=== PATIENT | male | born 1940 | race Two or more races ===

== ENCOUNTER 2018-10-21 10:52 | Day surgery (SDC) | payer OTHER, BC ==
[2018-10-21 09:03] VITALS: BMI 32.1
--- NOTE | 2018-10-21 09:12 | HP ---
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) Endocrine: Yes: Diabetes Mellitus - Current Medications Current Medications: Home Medications Medication Instructions Recorded Folic Acid 0.4 mg PO DAILY 10/01/13 Metoprolol Succinate [Toprol XL -] 100 mg PO DAILY 10/01/13 Cholecalciferol (Vitamin D3) 1,000 unit PO DAILY #0 tab 10/08/13 [Vitamin D3 -] metFORMIN HCL [Glucophage -] 500 mg PO BIDAC #60 tablet 10/08/13 Ascorbic Acid [Vitamin C -] 500 mg PO DAILY 10/21/18 Fenofibrate Nanocrystallized 145 mg PO DAILY 10/21/18 [Tricor] Gabapentin 900 - 1,800 mg PO PRN PRN 10/21/18 [place]-3 Fatty Acids/Fish Oil [Fish 1 each PO DAILY 10/21/18 Oil 1,000 mg Capsule] Oxycodone HCl/Acetaminophen 1 tab PO Q6H #20 tablet MDD 4 10/21/18 [Percocet 5-325 mg Tablet] Satellite Physical Exam - Physical Examination General Appearance: Well Nourished, Well Developed, Alert & Oriented x3 ENT: Clear Lung: Normal air movement Heart: Regular rate & rhythm Extremities: Other (left ring- + ttp a1 davion, + cord, nvi) Neurological: Intact, Alert, Oriented Satellite Impression/Plan - Impression/Plan Impression: left ring trigger finger, dupuytrens Operative Procedure: left ring trigger release Date to be Performed: 10/21/18
[2018-10-21] MEDS ORDERED: MIDAZOLAM HCL 2 MG/2 ML SINGLE DOSE VIAL ONE (13:57)
[2018-10-21] MEDS ORDERED: PROPOFOL 20 ML ONE (13:57)
[2018-10-21] MEDS ORDERED: ceFAZolin SODIUM 1 GM VIAL ONE (14:01)
[2018-10-21] MEDS ORDERED: ceFAZolin SODIUM 1 GM VIAL IVPB ONE (14:08)
[2018-10-21] MEDS ORDERED: BUPIVACAINE HCL/PF 0.5% (5MG/ML) 10 ML VIAL ONE (14:13)
[2018-10-21] MEDS ORDERED: LIDOCAINE HCL 1%, 10 MG/ML (20ML VIAL) ONE (14:13)
[2018-10-21] MEDS ORDERED: ONDANSETRON 4 MG/2 ML VIAL IVPUSH PRN (14:35)
[2018-10-21] MEDS ORDERED: oxyCODONE HCL 5 MG TABLET PO PRN (14:35)
[2018-10-21] MEDS ORDERED: LACTATED RINGERS SOLUTION 1,000 ML IV SCH (14:45)
[2018-10-21] MEDS ORDERED: BUPIVACAINE HCL/PF (5 MG/ML) 30 ML VIAL IJ ONE (14:54)
[2018-10-21 16:11] VITALS: TEMP 97.5
[2018-10-21 16:34] VITALS: BP 143/66; PULSE 51
--- NOTE | 2018-10-22 13:42 | OP ---
DATE OF OPERATION: 10/21/2018 PREOPERATIVE DIAGNOSIS: Left hand ring finger trigger finger and Dupuytren contracture. POSTOPERATIVE DIAGNOSIS: Left hand ring finger trigger finger and Dupuytren contracture. PROCEDURES: 1. Left ring finger trigger finger release. 2. Left hand Dupuytren tissue excision. SURGEON: Dee Valladares MD HAZMAT TECHNICIAN: None. ANESTHESIOLOGIST: Aquiles Broussard CRNA ANESTHESIA: MAC anesthesia with local injection of 15 mL of 0.5% Marcaine and 1% lidocaine mixed. DRAINS: None. COMPLICATIONS: None. SPECIMEN: Tendon sheath and Dupuytren tissue, left hand. BLOOD LOSS: None. BLOOD GIVEN: None. FLUID REPLACEMENT: 500 mL. INDICATION: This patient is a 78-year-old male with preoperative diagnosis of a painful left ring finger, recurrent trigger finger, and Dupuytren tissue in his left palm going into the ring finger. After understanding the potential risk, complications, alternatives, and benefits of surgical versus nonsurgical treatment, the patient elected to undergo this procedure. DESCRIPTION OF PROCEDURE: The patient was brought into the operating room, peripheral IV placed and IV sedation given. IV Ancef 2 g were given. MAC anesthesia was induced. The left upper extremity was then prepped and draped in a sterile fashion, elevated, and exsanguinated with Esmarch bandage, and tourniquet inflated to 250 mmHg. I sallie out a zigzag incision over the left palm going over the A1 davion sheath of the left ring finger. Fifteen mL of 0.5% Marcaine and 1% lidocaine mixed was injected in and around the surgical incisions. The incision was then made with a number 15 scalpel blade. Subcutaneous hemostasis was achieved with a bipolar cautery. Dissection was done with both Lipshultz scissors as well as a fresh number 15 scalpel blade raising full-thickness skin flaps and holding down in retraction with 2-0 silk sutures in the lead hand. I could immediately see the Dupuytren tissue and cord with extensions radially and ulnarly. Circumferential dissection was done. The entire cord and the surrounding Dupuytren tissue was excised to pass off the field as specimen. It was done under 3.8 Loupe magnification. Great care was taken to avoid any crossing neurovascular or tendinous structures. The A1 davion sheath of the left ring finger was directly visualized, and an open trigger finger release was done. I excised the central 3 mm of the A1 tendon sheath and passed it off the field as part of the specimen. I was able to see and feel that the release was complete. The area was copiously irrigated and washed out. I then looked and felt for any other abnormal Dupuytren tissue of which I could not. Closure was done with 4-0 undyed Vicryl in the deep dermal layer, and final skin reapproximation was done with 4-0 nylon sutures. The area was then washed and dried, covered with Xeroform, 4 x 4 gauze, fluffs between the fingers, Webril, and Coban. There was no complication during the case. The patient tolerated the procedure quite well. Total tourniquet time was 40 minutes. Patient was brought to the ambulatory recovery room in stable condition. DEE VALLADARES M.D. [id number]
--- NOTE | 2018-10-23 14:03 | PATH ---
Surgical Pathology Report Patient Name: [facility]. Rec. #: [id number] /Age/Gender: 1940 (Age: 78) / M Account: [id number] Location: [facility] SUR[facility]ICAL Taken: 10/21/2018 Received: 10/22/2018 Reported: 10/23/2018 Physicians: Eddi Bower M.D. Specimen(s) Received DUPUYTREN Clinical History Dupuytren's trigger finger Final Diagnosis DUPUYTREN'S, LEFT, TRIGGER AND RING FINGER, RELEASE: CONSISTENT WITH PALMAR FIBROMATOSIS. Electronically Signed Freda Whitman M.D. Gross Description Received in formalin labeled "Dupuytren's," is a 3.3 x 1.6 x 0.3 cm aggregate of sapp-yellow, irregular portions of fibrous tissue. Beater Room Helper sections are submitted in one cassette. /10/22/201810/22/2018
== END 2018-10-21 16:38 | disposition home or self-care (01) ==
LOC: JASU-SURG 10:52
PROVIDERS: ATTEND Orthopaedic Surgery
PROC: 0JNK0ZZ Release Left Hand Subcutaneous Tissue and Fascia, Open Approach (ICD-10-PCS; principal; 2018-10-21 12:30)
PROC: 0LN80ZZ Release Left Hand Tendon, Open Approach (ICD-10-PCS; 2018-10-21 12:30)
DX: M65.342 Trigger finger, left ring finger (principal); M72.0 Palmar fascial fibromatosis [Dupuytren]
CPT/HCPCS: 82962; 88304-TC; 94760

== ENCOUNTER 2019-06-01 07:31 | Emergency (ER) | payer OTHER, BC ==
[2019-06-01 07:54] VITALS: TEMP 97.8; BMI 34.0
[2019-06-01] MEDS ORDERED: ACETAMINOPHEN 1000 MG/100 ML VIAL (NON FORMULARY) IVPB ONE (08:07)
[2019-06-01] MEDS ORDERED: SODIUM CHLORIDE 0.9% 500 ML INFUS.BAG IV ONE (08:13)
--- NOTE | 2019-06-01 08:14 | PDOC ---
History of Present Illness - General Chief Complaint: Pain, Acute Stated Complaint: ABD PAIN History Source: Patient - History of Present Illness Initial Comments: 06/01/19 08:05 79 y/o/m here for right flank pain that started at 4 AM today. Patient states he got out of bed to go to the bathroom and as he was taking a sip of water he had sudden onset right sided flank/groin pain. He states that he felt "like he got shot". He did not fall or lose consciousness at this time. The pain has been constant since. He describes it as 9/10, sharp, non radiating. He took two aspirin this morning without improvement. He does not have shooting pains in his leg and denies any numbness or incontinence. He denies dysuria, hematuria, chest pain, abd pain, SOB, N/V/D, headache, weakness, or other symptoms. He denies history of kidney stones. He had a MRI 2 months ago for back pain and was told he has multiple bulging discs. PMHx: HTN, HLD, DM, fibromyalgia SHx: bilateral TKA, appendectomy, left sided hernia repair, tonsillectomy Social: denies tobacco use. drinks a 6pack of beer daily "to help him sleep" PCP: Dr. Britt Past History - Past Medical History Allergies/Adverse Reactions: Allergies Allergy/AdvReac Type Severity Reaction Status Date / Time No Known Drug Allergies Allergy Verified 06/01/19 07:49 Home Medications: Ambulatory Orders Folic Acid 0.4 mg PO DAILY 10/01/13 Metoprolol Succinate [Toprol XL -] 100 mg PO DAILY 10/01/13 Cholecalciferol (Vitamin D3) [Vitamin D3 -] 1,000 unit PO DAILY #0 tab 10/08/13 metFORMIN HCL [Glucophage -] 500 mg PO BIDAC #60 tablet 10/08/13 Ascorbic Acid [Vitamin C -] 500 mg PO DAILY 10/21/18 Fenofibrate Nanocrystallized [Tricor] 145 mg PO DAILY 10/21/18 Gabapentin 900 - 1,800 mg PO PRN PRN 10/21/18 [place]-3 Fatty Acids/Fish Oil [Fish Oil 1,000 mg Capsule] 1 each PO DAILY Oxycodone HCl/Acetaminophen [Percocet 5-325 mg Tablet] 1 tab PO Q6H #20 tablet MDD 4 10/21/18 Diazepam [Valium] 2 mg PO BID #6 tablet MDD 2 06/01/19 Anemia: No Asthma: No Cancer: No Cardiac Disorders: No CVA: No COPD: No Dementia: No Diabetes: Yes HTN: Yes Hypercholesterolemia: Yes Seizures: No - Surgical History Appendectomy: Yes Orthopedic Surgery: Yes (B/L TKR, left elbow sx) - Immunization History Immunization Up to Date: Yes - Suicide/Smoking/Psychosocial Hx Smoking History: Never smoked Have you smoked in the past 12 months: No If you are a former smoker, when did you quit?: 50YRS AGO Information on smoking cessation initiated: No Hx Alcohol Use: No Drug/Substance Use Hx: No Substance Use Type: None Hx Substance Use Treatment: No Review of Systems - Review of Systems Constitutional: No: Chills, Fever HEENTM: No: Recent change in vision, Nose Congestion Respiratory: No: Cough, Shortness of Breath Cardiac (ROS): No: Chest Pain, Lightheadedness ABD/GI: Yes: Other (right sided flank/groin pain). No: Constipated, Diarrhea, Nausea, Vomiting : No: Burning, Dysuria, Hematuria Musculoskeletal: No: Back Pain Integumentary: No: Rash Neurological: No: Headache, Numbness *Physical Exam - Vital Signs Last Vital Signs Temp Pulse Resp BP Pulse Ox 97.8 F 56 L 16 168/80 100 06/01/19 07:35 06/01/19 07:35 06/01/19 07:35 06/01/19 07:35 06/01/19 07:35 - Physical Exam General Appearance: Yes: Nourished, Appropriately Dressed, Mild Distress HEENT: positive: EOMI, Normal Voice, Symmetrical Neck: positive: Trachea midline, Supple Respiratory/Chest: positive: Lungs Clear, Normal Breath Sounds. negative: Accessory Muscle Use Cardiovascular: positive: Regular Rhythm, Regular Rate, S1, S2 Gastrointestinal/Abdominal: positive: Normal Bowel Sounds, Tender (tenderness to palpation over the right groin ), Soft Male Genitalia: positive: testicular tenderness Musculoskeletal: negative: CVA Tenderness Extremity: positive: Normal Capillary Refill Integumentary: positive: Normal Color. negative: Diaphoresis Neurologic: positive: Fully Oriented, Alert, Motor Strength 5/5 ED Treatment Course - LABORATORY CBC & Chemistry Diagram: 06/01/19 08:30 06/01/19 08:15 Medical Decision Making - Medical Decision Making 06/01/19 08:27 -79 y/o/m here for right flank pain that started at 4 AM today. Patient states he got out of bed to go to the bathroom and as he was taking a sip of water he had sudden onset right sided flank/groin pain. He states that he felt "like he got shot". He did not fall or lose consciousness at this time. The pain has been constant since. He describes it as 9/10, sharp, non radiating. -Workup with: CBC, CMP, lipase, UA, urine culture, scrotal ultrasound -Pain control with IV tylenol. 06/01/19 09:52 -Patient given Morphine for additional pain control. 06/01/19 10:06 -CT abd&pelvis with contrast ordered for further workup. Patients GFR >30. 06/01/19 12:27 -CT abd&pelvis negative. Scrotal U/S negative. -CBC, CMP, UA within normal limits. -Spoke with patient's PCP Dr. Britt. -Will discharge patient with followup and pain medication. *DC/Admit/Observation/Transfer Diagnosis at time of Disposition: Muscle spasm - Discharge Dispostion Disposition: HOME Condition at time of disposition: Improved - Prescriptions Prescriptions: Diazepam [Valium] 2 mg PO BID #6 tablet MDD 2 - Referrals Referrals: Eleno Britt MD [Primary Care Provider] - - Patient Instructions Printed Discharge Instructions: DI for Muscle Spasm Additional Instructions: If you have worsening pain, nausea, fever, start vomiting, or have other concerning symptoms please return to the ER. Please take Motrin and Valium as prescribed for your pain. Please follow up with your pain management doctor this week. Please follow up with your primary care doctor in the next week. - Post Discharge Activity
[2019-06-01] MEDS ORDERED: ACETAMINOPHEN INJECTION 100 ML IVPB ONE (08:19)
[2019-06-01] MEDS ORDERED: morphine CARPU-JECT 4 MG/1 ML DISP.SYRIN IVPUSH ONE ×3 (08:29→09:18)
--- NOTE | 2019-06-01 08:30 | PDOC ---
Attending Attestation - Resident Resident Name: TarikryanSeranader Megan - ED Attending Attestation I have performed the following: I have examined & evaluated the patient, The case was reviewed & discussed with the resident, I agree w/resident's findings & plan, Exceptions are as noted - HPI HPI: 06/01/19 10:12 79 years old with past medical history significant for hypertension hyperlipidemia coronary artery disease presents to the emergency department with sudden onset of right groin pain. No history of similar. Pain is moderate to severe 10 out of 10 sharp radiates from his car into his testicle. No exacerbating or alleviating factors. - Physicial Exam PE: 06/01/19 10:12 Vitals: Triage Vital signs reviewed General Appearance: no acute distress, well nourished well developed, Head: Atraumatic, Cardiac: Regular rate and rhythym, no murmurs, no rubs, no gallops, Lungs: Clear to auscultation bilateral, good air movement bilaterally, Abdomen: Soft, non distended, normal bowel sounds, Mild right lower quadrant TTP Genitourinar No testicular TTP Rectal: Exam deferred Extremities: Full range of motion to all extremities, no cyanosis, clubbing, or edema Skin: Warm and dry, no rashes or lesions, no rash, no petechiae Psych: normal mood, normal affect - Medical Decision Making 06/01/19 15:07 79 years old presents emergency department with sudden onset of right groin pain. Testicular US preformed with no evidence of torsion. CT with on acute pathology. Pain is very positional. No fever no elevated WBC Pt. with recent MRI spine showing mult herniated disc Diff diagnosis includes Radicular pain vrs MSK strain Pt. will f/u with his pain management doctor and will return to the ED for any severe worsening symptoms or for any concerns.
[2019-06-01] MEDS ORDERED: morphine SULFATE 4 MG/ML VIAL ONE ×2 (08:35→09:19)
[2019-06-01 08:49] LABS: ALBUMIN 3.9 g/dl (3.4-5.0); BILIRUBIN,TOTAL 0.8 mg/dL (0.2-1); BLOOD UREA NITROGEN 19.1 mg/dL (7-18); CALCIUM 9.3 mg/dL (8.5-10.1); CREATININE 1.3 mg/dL (0.55-1.3); POTASSIUM 4.8 mmol/L (3.5-5.1)
[2019-06-01 08:54] LABS: BASO % 1.4 % (0-2.0); HEMATOCRIT 45.7 % (35.4-49); HEMOGLOBIN 15.9 GM/dL (11.7-16.9); LYMPH % 12.9 % (8-40); MCH 31.5 pg (25.7-33.7); MCHC 34.7 g/dl (32.0-35.9); MEAN CELL VOLUME 90.8 fl (80-96); MEAN PLT VOLUME 9.2 fl (7.5-11.1); MONO % 7.7 % (3.8-10.2); PLATELET COUNT 176 K/MM3 (134-434); RBC 5.04 M/mm3 (4.00-5.60); RDW 13.6 % (11.9-15.9); WHITE BLOOD COUNT 6.5 K/mm3 (4.0-10.0)
[2019-06-01 11:26] LABS: URINE APPEARANCE CLEAR; URINE BILIRUBIN NEGATIVE (NEGATIVE); URINE COLOR YELLOW; URINE GLUCOSE (UA) NEGATIVE (NEGATIVE); URINE KETONE NEGATIVE (NEGATIVE); URINE LEUK ESTERASE NEGATIVE (NEGATIVE); URINE NITRITE NEGATIVE (NEGATIVE); URINE PROTEIN NEGATIVE (NEGATIVE); URINE UROBILINOGEN 0.2 mg/dL (0.2-1.0)
[2019-06-01] MEDS ORDERED: diazePAM 2 MG TABLET PO ONE (12:00)
[2019-06-01 12:20] VITALS: BP 173/81; PULSE 72
== END 2019-06-01 12:30 | disposition home or self-care (01) ==
LOC: JER 07:31
PROC: 3E033NZ Introduction of Analgesics, Hypnotics, Sedatives into Peripheral Vein, Percutaneous Approach (ICD-10-PCS; principal; 2019-06-01)
PROC: 3E033NZ Introduction of Analgesics, Hypnotics, Sedatives into Peripheral Vein, Percutaneous Approach (ICD-10-PCS; 2019-06-01)
DX: M62.838 Other muscle spasm (principal); I10 Essential (primary) hypertension; E78.5 Hyperlipidemia, unspecified; E11.9 Type 2 diabetes mellitus without complications; Z79.84 Long term (current) use of oral hypoglycemic drugs
CPT/HCPCS: 36415; 74177-TC; 76870-TC; 80053; 81003; 85025; 87086; 87186; 96374; 96375; 96376; 99284-25; J0131

== ENCOUNTER 2022-04-19 13:01 | Emergency (ER) | payer OTHER, BC ==
[2022-04-19 13:20] VITALS: BP 136/63; PULSE 63; RESP 16; BMI 31.7
[2022-04-19 15:02] VITALS: TEMP 98.1
== END 2022-04-19 17:27 | disposition home or self-care (01) ==
LOC: JERFT 13:01
DX: S39.012A Strain of muscle, fascia and tendon of lower back, initial encounter (principal)
CPT/HCPCS: 72131-TC; 99284-25

== ENCOUNTER 2022-09-01 17:48 | Emergency (ER) | payer OTHER, BC ==
[2022-09-01 17:58] VITALS: PULSE 90; BMI 31.0
[2022-09-01] MEDS ORDERED: IBUPROFEN 400 MG TABLET (FP) PO ONE ×2 (18:14→18:25)
[2022-09-01] MEDS ORDERED: ACETAMINOPHEN 325 MG TABLET (FP) PO ONE (18:14)
[2022-09-01] MEDS ORDERED: ACETAMINOPHEN 325 MG TABLET (FP) ONE (18:26)
[2022-09-01] MEDS ORDERED: LACTATED RINGERS SOLUTION 1000 ML INFUS.BAG IV ONE (18:37)
[2022-09-01 19:14] LABS: HEMOGLOBIN 14.5 GM/dL (11.7-16.9); LYMPH % 7.8 % (8-40); MCHC 34.5 g/dl (32.0-35.9); MEAN CELL VOLUME 89.8 fl (80-96); MEAN PLT VOLUME 8.7 fl (7.5-11.1); NEUT % 80.2 % (42.8-82.8); PLATELET COUNT 159 10^3/uL (134-434); RBC 4.68 M/mm3 (4.00-5.60); RDW 13.6 % (11.9-15.9); WHITE BLOOD COUNT 7.4 K/mm3 (4.0-10.0)
[2022-09-01 19:21] LABS: INR 1.21 (0.83-1.09); PROTHROMBIN TIME (PATIENT) 13.9 SEC (9.7-13.0)
[2022-09-01 19:23] LABS: ACTIVATED PTT 52.2 SECONDS (25.2-36.5)
[2022-09-01 19:35] LABS: CALCIUM 9.3 mg/dL (8.5-10.1)
[2022-09-01 19:36] LABS: ALBUMIN 3.6 g/dl (3.4-5.0); BLOOD UREA NITROGEN 21.5 mg/dL (7-18)
[2022-09-01 19:39] LABS: CREATININE 1.7 mg/dL (0.55-1.3)
[2022-09-01 19:41] LABS: TOT PROT 6.4 g/dl (6.4-8.2)
[2022-09-01 21:55] VITALS: BP 120/61; RESP 18; TEMP 98.9
== END 2022-09-01 21:57 | disposition home or self-care (01) ==
LOC: JER 17:48
DX: U07.1 COVID-19 (principal)
CPT/HCPCS: 0241U-QW; 36415; 70496-TC; 70498-TC; 71045-TC-FY; 80053; 84484; 85025; 85610; 85730; 93005; 93010; 99285-25

== ENCOUNTER 2023-09-24 20:30 | Observation (INO) | payer OTHER, BC ==
[2023-09-24] MEDS ORDERED: ACETAMINOPHEN 500 MG TABLET (FP) PO ONE (20:55)
[2023-09-24] MEDS ORDERED: ACETAMINOPHEN 325 MG TABLET (FP) ONE (21:17)
[2023-09-24 21:27] LABS: BASO % 0.8 % (0-2.0); EOS % 9.1 % (0-4.5); HEMATOCRIT 41.8 % (35.4-49); HEMOGLOBIN 14.1 GM/dL (11.7-16.9); MCH 30.4 pg (25.7-33.7); MCHC 33.6 g/dl (32.0-35.9); MEAN CELL VOLUME 90.2 fl (80-96); MEAN PLT VOLUME 8.2 fl (7.5-11.1); MONO % 6.8 % (3.8-10.2); NEUT % 68.3 % (42.8-82.8); PLATELET COUNT 175 10^3/uL (134-434); RBC 4.63 M/mm3 (4.00-5.60); RDW 14.4 % (11.9-15.9); WHITE BLOOD COUNT 7.5 K/mm3 (4.0-10.0)
[2023-09-24 21:34] LABS: INR 1.14 (0.83-1.09); PROTHROMBIN TIME (PATIENT) 13.2 SEC (9.7-13.0)
[2023-09-24 21:38] LABS: ACTIVATED PTT 47.5 SECONDS (25.2-36.5)
[2023-09-24 21:44] LABS: CALCIUM 9.2 mg/dL (8.5-10.1)
[2023-09-24 21:45] LABS: ALBUMIN 3.5 g/dl (3.4-5.0); MAGNESIUM 1.8 mg/dL (1.8-2.4)
[2023-09-24 21:48] LABS: CREATININE 1.5 mg/dL (0.55-1.3)
[2023-09-24 21:50] LABS: BILIRUBIN,TOTAL 0.8 mg/dL (0.2-1); TOT PROT 6.5 g/dl (6.4-8.2)
[2023-09-24 21:53] LABS: N-TERMINAL BNP 256.8 pg/ml (5-450)
[2023-09-24] MEDS ORDERED: SODIUM CHLORIDE 0.9% 500 ML INFUS.BAG IV ONE (22:00)
[2023-09-25] MEDS ORDERED: MAG HYDROX/AL HYDROX/SIMETH 30 ML UNIT-DOSE CUP PO PRN (02:06)
[2023-09-25] MEDS ORDERED: GABAPENTIN 300 MG CAPSULE ONE (05:14)
[2023-09-25] MEDS: GABAPENTIN 300 MG CAPSULE PO PRN ×2 (05:33→22:31)
[2023-09-25] MEDS: INSULIN ASPART SLIDING SCALE (NOVOLOG) 1 VIAL SQ SCH ×4 (06:24→21:04)
[2023-09-25] MEDS: PANTOPRAZOLE 40 MG TABLET PO SCH ×2 (06:26→06:30)
[2023-09-25 06:40] VITALS: BMI 30.1
[2023-09-25] MEDS ORDERED: MAG HYDROX/AL HYDROX/SIMETH 30 ML UNIT-DOSE CUP PO ONE (07:09)
[2023-09-25] MEDS ORDERED: ASPIRIN 325 MG TABLET PO ONE (07:31)
[2023-09-25] MEDS ORDERED: REGADENOSON 0.4 MG/5 ML PRE-FILLED SYRINGE IVPUSH ONE ×2 (09:57→10:00)
[2023-09-25] MEDS: ENOXAPARIN NA (PORCINE) 40 MG/0.4 ML DISP.SYRIN SQ SCH (14:59)
[2023-09-25 15:28] LABS: EOS % 9.5 % (0-4.5); HEMATOCRIT 44.2 % (35.4-49); HEMOGLOBIN 14.7 GM/dL (11.7-16.9); LYMPH % 11.6 % (8-40); MCH 30.6 pg (25.7-33.7); MCHC 33.3 g/dl (32.0-35.9); MEAN PLT VOLUME 8.5 fl (7.5-11.1); MONO % 5.3 % (3.8-10.2); NEUT % 72.6 % (42.8-82.8); PLATELET COUNT 172 10^3/uL (134-434); RBC 4.81 M/mm3 (4.00-5.60); RDW 14.5 % (11.9-15.9); WHITE BLOOD COUNT 7.3 K/mm3 (4.0-10.0)
[2023-09-25 15:43] LABS: POTASSIUM 4.2 mmol/L (3.5-5.1)
[2023-09-25 15:45] LABS: CALCIUM 9.8 mg/dL (8.5-10.1)
[2023-09-25 15:46] LABS: ALBUMIN 3.9 g/dl (3.4-5.0); MAGNESIUM 2.1 mg/dL (1.8-2.4)
[2023-09-25 15:48] LABS: CHOLESTEROL 155 mg/dL (50-200)
[2023-09-25 15:49] LABS: CREATININE 1.1 mg/dL (0.55-1.3); LDL CHOLESTEROL (ONLY SJRH) 105 mg/dL (5-100); PHOSPHOROUS 2.7 mg/dL (2.5-4.9)
[2023-09-25 15:50] LABS: BILIRUBIN,TOTAL 0.9 mg/dL (0.2-1)
[2023-09-25 15:51] LABS: HDL CHOLESTEROL 34 mg/dL (40-60)
[2023-09-25] MEDS: FENOFIBRIC ACID 135 MG CAP PO SCH (18:32)
[2023-09-25] MEDS ORDERED: ATORVASTATIN CA 10 MG TABLET (FP) PO SCH (22:00)
[2023-09-26] MEDS: INSULIN ASPART SLIDING SCALE (NOVOLOG) 1 VIAL SQ SCH ×2 (06:18→11:45)
[2023-09-26] MEDS: GABAPENTIN 300 MG CAPSULE PO PRN (06:37)
[2023-09-26] MEDS: FENOFIBRIC ACID 135 MG CAP PO SCH (09:49)
[2023-09-26] MEDS: ENOXAPARIN NA (PORCINE) 40 MG/0.4 ML DISP.SYRIN SQ SCH (09:50)
[2023-09-26] MEDS ORDERED: ASPIRIN 81 MG CHEWABLE TABLETS PO SCH (10:00)
[2023-09-26 11:48] VITALS: RESP 18
[2023-09-26 15:45] VITALS: BP 133/66; PULSE 62; TEMP 97.6
== END 2023-09-26 16:00 | disposition home or self-care (01) ==
LOC: JER 20:30 → JERBED 22:43 → J4W 09-25 07:24
PROVIDERS: ADMIT Internal Medicine
PROC: 3E023GC Introduction of Other Therapeutic Substance into Muscle, Percutaneous Approach (ICD-10-PCS; principal; 2023-09-24)
PROC: 3E033GC Introduction of Other Therapeutic Substance into Peripheral Vein, Percutaneous Approach (ICD-10-PCS; 2023-09-24)
PROC: 3E0337Z Introduction of Electrolytic and Water Balance Substance into Peripheral Vein, Percutaneous Approach (ICD-10-PCS; 2023-09-24)
DX: R07.89 Other chest pain (principal); I10 Essential (primary) hypertension; E78.5 Hyperlipidemia, unspecified; E11.9 Type 2 diabetes mellitus without complications
CPT/HCPCS: 0241U-QW; 36415; 71045-TC-FY; 76775-TC; 78452-TC; 80053; 80061; 82962; 83036; 83735; 83880; 84100; 84443; 84484; 85025; 85610; 85730; 93005; 93010; 93017; 93306-TC; 96372; 96374; 99285-25; A9502; G0378; J2785